=== PATIENT | male | born 1995 | race Caucasian/White ===

== ENCOUNTER 2018-05-25 09:18 | Emergency (ER) | payer BC, OTHER ==
[~2018-05-25] VITALS: Ht 170.2 cm; Wt 63.5 kg
[2018-05-25] MEDS ORDERED: TRAM50TA2 (09:42)
[2018-05-25] MEDS ORDERED: CHLO473M (09:42)
[2018-05-25] MEDS ORDERED: ANTACID SUSP 30 ML UDC (MYLANTA) PO ONE (09:45)
[2018-05-25] MEDS ORDERED: LIDOCAINE 2% VISCOUS 15 ML UDC PO ONE ×2 (09:45)
--- NOTE | 2018-05-25 09:57 | ED EENT ---
History of Present Illness General Chief Complaint: Oral/Throat Problems Stated Complaint: MOUTH SORES Nursing Triage Note: ARRIVED VIA AMB TO ROOM 10. COMPLAINS OF SORES IN HIS MOUTH FOR ABOUT A WEEK. HAS BEEN TO THE DR TWICE AND CONTINUES TO HAVE SEVERE PAIN. Source: patient Exam Limitations: no limitations History of Present Illness Date Seen by Provider: May 25, 2018 Time Seen by Provider: 09:24 Initial Comments Here with report of sores to his mouth and is been going on for about a week. Has been seen by his doctor and currently is on Magic mouthwash as well as tramadol. The tramadol is not helping with the pain at all. States he is having a hard time drinking. States the Magic mouthwash helps briefly but then stops working. Tramadol has been ineffective for pain. Timing/Duration: last week Severity: moderate Location: mouth Prearrival Treatment: over the counter meds, prescription meds Associated Symptoms: No cough, No fever, No voice change Allergies and Home Medications Allergies Coded Allergies: No Known Drug Allergies (Unverified , 05/25/18) Patient Home Medication List Home Medication List Reviewed: Yes Review of Systems Review of Systems Constitutional: see HPI; No chills, No fever Eyes: No Symptoms Reported Ears: No Symptoms Reported Mouth: see HPI, pain; denies swelling Throat: denies pain, denies neck stiffness, denies hoarse, denies aphonia Respiratory: no symptoms reported Cardiovascular: no symptoms reported Past Jqmenuu-Mjxuxv-Seamxn Hx Past Med/Social Hx: Reviewed Nursing Past Med/Soc Hx Patient Social History Alcohol Use: Occasionally Uses Recreational Drug Use: Yes Drug of Choice: POT Smoking Status: Current Someday Smoker Recent Foreign Travel: No Contact w/Someone Who Travel: No Recent Infectious Disease Expo: No Recent Hopitalizations: No Past Medical History Surgeries: Yes Orthopedic Respiratory: No Cardiac: No Neurological: No Genitourinary: No Gastrointestinal: No Musculoskeletal: No Endocrine: No HEENT: No Cancer: No Did You Recieve Any Treatments: No Psychosocial: No Integumentary: No Blood Disorders: No Family Medical History Reviewed Nursing Family Hx Physical Exam Vital Signs Vital Signs - First Documented 05/25/18 09:22 Temp 95.9 Pulse 95 Resp 16 B/P (MAP) 123/92 (102) Pulse Ox 98 O2 Delivery Room Air Height, Weight, BMI Height: 5'7.00" Weight: 140lbs. oz. 63.445800ps; BMI Method:Stated General Appearance: WD/WN, mild distress Mouth/Throat: No tongue swollen; other (multiple sores on the soft and hard palate without source to the gums her cheeks. No significant tongue swelling. Mild erythema to the pharynx.) Cardiovascular: regular rate, rhythm, no murmur Respiratory: lungs clear, normal breath sounds Gastrointestinal: non tender, soft Neurologic/Psychiatric: alert, oriented x 3 Progress/Results/Core Measures Results/Orders My Orders Orders - VERA RODAS MD Lidocaine 2% Viscous 15 Ml (Xylocaine Vi (05/25/18 09:45) Antacid Suspension (Mylanta Suspension (05/25/18 09:45) Lidocaine 2% Viscous 15 Ml (Xylocaine Vi (05/25/18 09:45) Medications Given in ED Current Medications Medications Dose Ordered Sig/Tima Route Start Time Stop Time Status Last Admin Dose Admin Al Hydrox/Mg Hydrox/Simethicone 30 ml ONCE ONCE PO 05/25/18 09:45 05/25/18 09:47 DC 05/25/18 09:45 30 ML Lidocaine HCl 5 ml ONCE ONCE PO 05/25/18 09:45 05/25/18 09:47 DC 05/25/18 09:50 5 ML Lidocaine HCl 15 ml ONCE ONCE PO 05/25/18 09:45 05/25/18 09:47 DC 05/25/18 09:45 15 ML Vital Signs/I&O 05/25/18 09:22 Temp 95.9 Pulse 95 Resp 16 B/P (MAP) 123/92 (102) Pulse Ox 98 O2 Delivery Room Air Blood Pressure Mean: 102 Progress Progress Note : Progress Note Seen and evaluated. GI cocktail given. Lidocaine soaked gauze pack given. Discharged home with return precautions. Patient verbalize understanding instructions and agreement with plan. He does have appointment with his doctor on Saturday. Departure Impression Primary Impression: Viral stomatitis Disposition: HOME, SELF-CARE Condition: Stable Departure-Patient Inst. Decision time for Depature: 09:57 Referrals: EMILY TRIPATHI MD (PCP/Family) Primary Care Physician Patient Instructions: Cold Sores (Oral Herpes) (DC) Add. Discharge Instructions: All discharge instructions reviewed with patient and/or family. Voiced understanding. Continue previous the prescribed medicines but stop the tramadol. You may take the hydrocodone as prescribed. If you're not taking that medication, you may use Tylenol/acetaminophen every 8 hours as needed for pain but do not take both at the same time as they both have acetaminophen in them. He may continue ibuprofen 600 mg every 8 hours as needed for pain as well. Drink plenty of fluids. You may use the lidocaine soaked gauze by applying 1 gauze to the mouth every 2 hours as needed for pain. Return for worse pain, vomiting, swallowing problems or other concerns as needed. You may consider supplement shake such as Ensure or similar to maintain calorie intake as needed. Otherwise stick with clear liquid or light diet until sores have resolved. Scripts Hydrocodone Bit/Acetaminophen (Hydrocodone/Acetaminophen 5/325mg Tablet) 1 Tab Tab 1 EACH PO Q6H PRN for PAIN-MODERATE, #15 TAB 0 Refills Prov: VERA RODAS MD 05/25/18 VERA RODAS MD May 25, 2018 09:57
[2018-05-25] MEDS ORDERED: ACHD5005 PO (10:01)
[2018-05-25 10:05] VITALS: BP 123/92
== END 2018-05-25 10:05 | disposition home or self-care (01) ==
LOC: ER 09:20
DX: K12.1 Other forms of stomatitis (principal); F12.10 Cannabis abuse, uncomplicated; F17.200 Nicotine dependence, unspecified, uncomplicated
CPT/HCPCS: 99283

== ENCOUNTER 2018-07-20 09:35 | Emergency (ER) | payer BC ==
[~2018-07-20] VITALS: Ht 175.3 cm; Wt 67.1 kg
[~2018-07-20 09:35] MED LIST: ACHD5005 PO; CHLO473M; TRAM50TA2
[2018-07-20] MEDS ORDERED: NS IV 1000 ML 1,000 ML IV SCH (10:00)
[2018-07-20 10:02] LABS: BASOPHILS % (AUTO) 0 % (0-10); EOSINOPHILS % (AUTO) 0 % (0-10); HEMATOCRIT 43 % (40-54); HEMOGLOBIN 15.2 G/DL (13.3-17.7); LYMPHOCYTES # (AUTO) 1.4 X 10^3 (1.0-4.0); LYMPHOCYTES % (AUTO) 11 % (12-44); MEAN CORPUSCULAR HEMOGLOBIN 32 PG (25-34); MEAN CORPUSCULAR HGB CONC 36 G/DL (32-36); MEAN CORPUSCULAR VOLUME 90 FL (80-99); MEAN PLATELET VOLUME 10.7 FL (7.4-10.4); MONOCYTES # (AUTO) 0.8 X 10^3 (0.0-1.0); MONOCYTES % (AUTO) 6 % (0-12); NEUTROPHILS # (AUTO) 10.4 X 10^3 (1.8-7.8); NEUTROPHILS % (AUTO) 82 % (42-75); PLATELET COUNT 297 10^3/uL (130-400); RED BLOOD COUNT 4.71 10^6/uL (4.35-5.85); RED CELL DISTRIBUTION WIDTH 12.5 % (10.0-14.5); WHITE BLOOD COUNT 12.6 10^3/uL (4.3-11.0)
--- NOTE | 2018-07-20 10:10 | ED Cardiac General ---
History of Present Illness General Stated Complaint: IRREGULAR HEART BEAT Source: family, other Exam Limitations: no limitations History of Present Illness Date Seen by Provider: Jul 20, 2018 Time Seen by Provider: 10:05 Initial Comments This 22-year-old white male presents with palpitations after using cocaine last night. Patient had self-limited palpitations this morning after using 3 lines of cocaine last night. Patient had an associated ingestion of alcohol in the form of approximately 8 beers. He denies other drug use last night. Patient has used cocaine in the past without similar effect. He denies associated chest pain, shortness of breath, diaphoresis, nausea or vomiting. Patient states his past medical history is essentially noncontributory. The patient is concerned about the palpitations as he has not had these in past with his cocaine use. Allergies and Home Medications Allergies Coded Allergies: No Known Drug Allergies (Unverified , 05/25/18) Patient Home Medication List Home Medication List Reviewed: Yes Review of Systems Review of Systems Constitutional: No chills EENTM: No Blurred Vision Respiratory: Denies Cough Cardiovascular: Denies Chest Pain; Palpitations Gastrointestinal: Denies Abdominal Pain, Denies Diarrhea, Denies Nausea, Denies Vomiting Genitourinary: No Symptoms Reported Musculoskeletal: No back pain Skin: no symptoms reported Psychiatric/Neurological: Anxiety Endocrine: No Symptoms Reported Hematologic/Lymphatic: No Symptoms Reported Past Vrlvzvv-Gwjntm-Idgpnu Hx Past Med/Social Hx: Reviewed Nursing Past Med/Soc Hx Patient Social History Drug of Choice: POT Recent Foreign Travel: No Contact w/Someone Who Travel: No Recent Hopitalizations: No Past Medical History Surgeries: Yes Orthopedic Respiratory: No Cardiac: No Neurological: No Genitourinary: No Gastrointestinal: No Musculoskeletal: No Endocrine: No HEENT: No Cancer: No Did You Recieve Any Treatments: No Psychosocial: No Integumentary: No Blood Disorders: No Physical Exam Vital Signs Vital Signs - First Documented 07/20/18 09:40 Temp 98.1 Pulse 105 Resp 12 B/P (MAP) 128/79 (95) Pulse Ox 97 Capillary Refill : Height, Weight, BMI Height: 5'7.00" Weight: 140lbs. oz. 63.353474xd; BMI Method:Stated General Appearance: No Apparent Distress, WD/WN, Anxious HEENT: Normal ENT Inspection Neck: Normal Inspection Respiratory: Lungs Clear, Normal Breath Sounds Cardiovascular: Regular Rate, Rhythm, No Murmur Gastrointestinal: Normal Bowel Sounds, Non Tender, Soft Extremity: Normal Inspection, Normal Range of Motion Neurologic/Psychiatric: Alert, Oriented x3, No Motor/Sensory Deficits, Normal Mood/Affect Skin: Normal Color Progress/Results/Core Measures Results/Orders Lab Results Laboratory Tests Test 07/20/18 09:50 07/20/18 10:57 Range/Units White Blood Count 12.6 H 4.3-11.0 10^3/uL Red Blood Count 4.71 4.35-5.85 10^6/uL Hemoglobin 15.2 13.3-17.7 G/DL Hematocrit 43 40-54 % Mean Corpuscular Volume 90 80-99 FL Mean Corpuscular Hemoglobin 32 25-34 PG Mean Corpuscular Hemoglobin Concent 36 32-36 G/DL Red Cell Distribution Width 12.5 10.0-14.5 % Platelet Count 297 130-400 10^3/uL Mean Platelet Volume 10.7 H 7.4-10.4 FL Neutrophils (%) (Auto) 82 H 42-75 % Lymphocytes (%) (Auto) 11 L 12-44 % Monocytes (%) (Auto) 6 0-12 % Eosinophils (%) (Auto) 0 0-10 % Basophils (%) (Auto) 0 0-10 % Neutrophils # (Auto) 10.4 H 1.8-7.8 X 10^3 Lymphocytes # (Auto) 1.4 1.0-4.0 X 10^3 Monocytes # (Auto) 0.8 0.0-1.0 X 10^3 Eosinophils # (Auto) 0.0 0.0-0.3 10^3/uL Basophils # (Auto) 0.0 0.0-0.1 10^3/uL Sodium Level 140 135-145 MMOL/L Potassium Level 3.4 L 3.6-5.0 MMOL/L Chloride Level 102 98-107 MMOL/L Carbon Dioxide Level 24 21-32 MMOL/L Anion Gap 14 5-14 MMOL/L Blood Urea Nitrogen 8 7-18 MG/DL Creatinine 1.11 0.60-1.30 MG/DL Estimat Glomerular Filtration Rate > 60 BUN/Creatinine Ratio 7 Glucose Level 112 H 70-105 MG/DL Calcium Level 10.1 8.5-10.1 MG/DL Corrected Calcium 8.5-10.1 MG/DL Total Bilirubin 0.5 0.1-1.0 MG/DL Aspartate Amino Transf (AST/SGOT) 17 5-34 U/L Alanine Aminotransferase (ALT/SGPT) 18 0-55 U/L Alkaline Phosphatase 62 40-136 U/L Troponin I < 0.30 <0.30 NG/ML Total Protein 7.8 6.4-8.2 GM/DL Albumin 5.1 H 3.2-4.5 GM/DL Urine Opiates Screen NEGATIVE NEGATIVE Urine Oxycodone Screen NEGATIVE NEGATIVE Urine Methadone Screen NEGATIVE NEGATIVE Urine Propoxyphene Screen NEGATIVE NEGATIVE Urine Barbiturates Screen NEGATIVE NEGATIVE Ur Tricyclic Antidepressants Screen NEGATIVE NEGATIVE Urine Phencyclidine Screen NEGATIVE NEGATIVE Urine Amphetamines Screen NEGATIVE NEGATIVE Urine Methamphetamines Screen NEGATIVE NEGATIVE Urine Benzodiazepines Screen NEGATIVE NEGATIVE Urine Cocaine Screen POSITIVE H NEGATIVE Urine Cannabinoids Screen POSITIVE H NEGATIVE My Orders Orders - EMILY CLEVELAND MD Iv 1000 Ml (Sodium Chloride 0.9%) (07/20/18 10:00) Cbc With Automated Diff (07/20/18 09:54) Drug Screen Stat (Urine) (07/20/18 09:54) Comprehensive Metabolic Panel (07/20/18 09:54) Troponin I (07/20/18 09:54) Ekg Tracing (07/20/18 09:54) Vital Signs/I&O 07/20/18 09:40 Temp 98.1 Pulse 105 Resp 12 B/P (MAP) 128/79 (95) Pulse Ox 97 Progress Progress Note : Time: 10:41 Progress Note The patient's EKG demonstrated a normal sinus rhythm. The patient's troponin was normal. Patient's CBC was unremarkable. The patient's CMP was similarly benign. UDS was positive for cocaine and marijuana. The patient received a liter of normal saline while in the emergency department and was observed over the next 2 hours. He had no further palpitations or complaints. I encouraged the patient discontinue use of the cocaine. I see follow up with his caregiver choice tomorrow for further evaluation and possible referral to cardiology. He was invited to return to the emergency department if any further problems or questions. Initial ECG Impression Date: Jul 20, 2018 Initial ECG Impression Time: 10:41 Initial ECG Rate: 90 Initial ECG Rhythm: Normal Sinus Initial ECG Impression: Nonspecific Changes Initial ECG Comparisson: No Previous ECG Available Departure Impression Primary Impression: Palpitations Additional Impression: Recreational drug use Disposition: 01 HOME, SELF-CARE Condition: Unchanged Departure-Patient Inst. Decision time for Depature: 11:28 Referrals: EMILY TRIPATHI MD (PCP/Family) Primary Care Physician Patient Instructions: Palpitations (DC) Add. Discharge Instructions: Close follow-up with Dr. Tripathi tomorrow. Discontinue cocaine use. Return if any problems or questions. EMILY CLEVELAND MD Jul 20, 2018 10:10
[2018-07-20 10:21] LABS: ALANINE AMINOTRANSFERASE 18 U/L (0-55); ALBUMIN 5.1 GM/DL (3.2-4.5); ALKALINE PHOSPHATASE 62 U/L (40-136); BILIRUBIN,TOTAL 0.5 MG/DL (0.1-1.0); BUN/CREATININE RATIO 7; CALCIUM 10.1 MG/DL (8.5-10.1); CARBON DIOXIDE 24 MMOL/L (21-32); CHLORIDE 102 MMOL/L (98-107); CREATININE SERUM 1.11 MG/DL (0.60-1.30); GFR ESTIMATED > 60; GLUCOSE 112 MG/DL (70-105); POTASSIUM 3.4 MMOL/L (3.6-5.0); SODIUM 140 MMOL/L (135-145); TOTAL PROTEIN 7.8 GM/DL (6.4-8.2)
[2018-07-20 11:20] LABS: AMPHETAMINE SCREEN, URINE NEGATIVE (NEGATIVE); BARBITURATE SCREEN URINE NEGATIVE (NEGATIVE); BENZODIAZEPINES SCREEN URINE NEGATIVE (NEGATIVE); CANNABINOID SCREEN, URINE POSITIVE (NEGATIVE); COCAINE SCREEN URINE POSITIVE (NEGATIVE); METHADONE STAT NEGATIVE (NEGATIVE); METHAMPHETAMINE SCREEN URINE S NEGATIVE (NEGATIVE); OPIATE SCREEN URINE NEGATIVE (NEGATIVE); OXYCODONE STAT NEGATIVE (NEGATIVE); PROPOXYPHENE STAT NEGATIVE (NEGATIVE); TRICYCLIC ANTIDEPRESSANTS SCRE NEGATIVE (NEGATIVE)
[2018-07-20 11:26] VITALS: BP 111/70
== END 2018-07-20 11:33 | disposition home or self-care (01) ==
LOC: ER 09:35 → EDUNIT# 09:35 → ER 11:33
DX: R00.2 Palpitations (principal); F12.10 Cannabis abuse, uncomplicated; F41.9 Anxiety disorder, unspecified
CPT/HCPCS: 36415; 80053; 80306; 84484; 85025; 93005